=== PATIENT | male | born 2000 | race Caucasian/White ===

== ENCOUNTER 2021-02-05 12:01 | Emergency (ER) | payer OTHER ==
[~2021-02-05] VITALS: Ht 170.2 cm; Wt 65.8 kg
[2021-02-05] MEDS ORDERED: ZITHROMAX200 MG PO (16:29)
[2021-02-05] MEDS ORDERED: TUSSIN DM SYRU118 ML PO (16:29)
== END 2021-02-05 18:26 | disposition home or self-care (01) ==
LOC: ER 12:01
DX: B34.9 Viral infection, unspecified (principal); Z11.52 Encounter for screening for COVID-19